=== PATIENT | female | born 1960 | race Caucasian/White ===

== ENCOUNTER 2020-01-16 15:15 | Emergency (ER) | payer OTHER ==
[~2020-01-16] VITALS: Ht 160 cm; Wt 75.3 kg
[~2020-01-16 15:15] MED LIST: ESTRADIOL1 MG PO; MEDROXYPROGESTE10 MG PO; MIRAPEX0.125 MG PO
--- NOTE | 2020-01-16 17:10 | EKG ---
[facility] [address] [facility] [place], [place] [address] Signed Atrial fibrillation with rapid ventricular response Nonspecific ST abnormality Abnormal ECG No previous ECGs available Confirmed by JENNYFER GOMEZ DO ([id number]) on 01/16/2020 5:10:22 PM Electronically Signed By: JENNYFER GOMEZ DO 01/16/20 1710 PATIENT NAME: MIK KOENIG DARLENE Electrocardiogram DATE OF : 62 PHYSICIAN: JENNYFER GOMEZ DO REPORT #: [id number] REPORT IS CONFIDENTIAL AND NOT TO BE RELEASED WITHOUT AUTHORIZATION
== END 2020-01-16 17:45 | disposition home or self-care (01) ==
LOC: ED 15:15
DX: I48.91 Unspecified atrial fibrillation (principal); G43.909 Migraine, unspecified, not intractable, without status migrainosus; Z79.899 Other long term (current) drug therapy
CPT/HCPCS: 80053; 83880; 84443; 84484; 85025; 93005; 93010; 96374; 99285-25

== ENCOUNTER 2020-04-11 20:06 | Emergency (ER) | payer OTHER ==
[~2020-04-11] VITALS: Ht 160 cm; Wt 77.1 kg
[2020-04-11] MEDS ORDERED: FLECAINIDE ACE100 MG PO (20:33)
[2020-04-11] MEDS ORDERED: METOPROLOL SUC100 MG PO (20:33)
[2020-04-11] MEDS ORDERED: LISINOPRIL10 MG PO (20:34)
== END 2020-04-11 22:03 | disposition home or self-care (01) ==
LOC: ED 20:06
DX: I48.91 Unspecified atrial fibrillation (principal); G43.909 Migraine, unspecified, not intractable, without status migrainosus; Z79.899 Other long term (current) drug therapy
CPT/HCPCS: 99284